=== PATIENT | female | born 1955 | race African-American/Black ===

== ENCOUNTER 2022-03-11 12:20 | Outpatient (CLI) | payer OTHER, MEDICARE | END 2022-03-11 12:21 | disposition home or self-care (01) | LOC: CSHRAD 12:20 | PROVIDERS: ATTEND Family Medicine | DX: M25.562 Pain in left knee (principal); M25.572 Pain in left ankle and joints of left foot; M17.12 Unilateral primary osteoarthritis, left knee; M25.462 Effusion, left knee; M79.89 Other specified soft tissue disorders ==

== ENCOUNTER 2022-06-17 10:18 | Outpatient (CLI) | payer OTHER, MEDICARE | END 2022-06-17 10:19 | disposition home or self-care (01) | LOC: CSHMAMMO 10:18 | PROVIDERS: ATTEND Family Medicine | DX: Z12.31 Encounter for screening mammogram for malignant neoplasm of breast (principal); Z13.820 Encounter for screening for osteoporosis; Z78.0 Asymptomatic menopausal state | CPT/HCPCS: 77063; 77067; 77080 ==

== ENCOUNTER 2022-09-17 10:50 | Outpatient (CLI) | payer OTHER, MEDICARE | END 2022-09-17 10:51 | disposition home or self-care (01) | LOC: CSHRAD 10:50 | PROVIDERS: ATTEND Family Medicine | DX: M25.561 Pain in right knee (principal); M17.11 Unilateral primary osteoarthritis, right knee ==